=== PATIENT | female | born 1965 | race Caucasian/White ===

== ENCOUNTER 2017-04-22 04:10 | Emergency (ER) | payer OTHER ==
[~2017-04-22] VITALS: Ht 175.3 cm; Wt 132.0 kg
[2017-04-22 04:50] LABS: MCH 27.4 PG (29.0-34.0); MCHC 32.4 G/DL (30.0-36.0); MCV 84.5 FL (83-99); MEAN PLAT.VOLUME 11.2 uM^3 (9.5-12.4); PLATELET COUNT 301 K/uL (156-360); RBC DIS.WIDTH-CV 12.6 % (11.8-14.6); RBC DIS.WIDTH-SD 38.3 % (39-53); RED BLOOD COUNT 4.38 M/uL (3.80-5.20); WHITE BLOOD COUNT 10.8 K/uL (4.1-10.2)
[2017-04-22 05:02] LABS: CHLORIDE 111 mEq/L (99-109); POTASSIUM 3.9 mEq/L (3.7-5.4); SODIUM 134 mEq/L (136-147)
[2017-04-22 05:04] LABS: GLUCOSE 85 mg/dL (70-99)
[2017-04-22 05:05] LABS: ANION GAP 2 MEQ/L (2-14)
[2017-04-22 05:06] LABS: TOTAL BILIRUBIN 0.4 mg/dL (0.0-1.0)
[2017-04-22 05:07] LABS: ALKALINE PHOSPHATASE 57 IU/L (3-129)
[2017-04-22 05:08] LABS: GFR ESTIMATE (CALCULATED) > 59 mL/min/
[2017-04-22 05:09] LABS: UREA NITROGEN (BUN) 7 mg/dL (9-23)
[2017-04-22 05:11] LABS: LIPASE 38 U/L (1.0-51.0)
[2017-04-22 05:28] LABS: INTERNAL CONTROL VALID? YES
[2017-04-22 05:55] LABS: C DIFF TOXIN POSITIVE (NEGATIVE)
[2017-04-22 06:07] LABS: PROBE CHECK PASS
[2017-04-22] MEDS ORDERED: FLAGYL500 MG PO (06:11)
[2017-04-22 06:26] VITALS: BP 131/78
== END 2017-04-22 06:27 | disposition home or self-care (01) ==
LOC: EME 04:10
PROVIDERS: Emergency Medicine; Physician Assistant
DX: A04.7 Enterocolitis due to Clostridium difficile (principal); F17.200 Nicotine dependence, unspecified, uncomplicated
CPT/HCPCS: 80053; 81003; 83630; 83690; 84703; 85027; 87177; 87493; 87506; 99281; 99284